=== PATIENT | male | born 1960 | race Asian ===

== ENCOUNTER 2016-08-26 00:34 | Emergency (ER) | payer OTHER ==
[~2016-08-26] VITALS: Ht 165.1 cm; Wt 71.7 kg
[2016-08-26 00:35] VITALS: BP 145/90; PULSE 69; RESP 16; TEMP 98.3; O2SAT 98
--- NOTE | 2016-08-26 00:35 | NUR ---
Patient to ER bed 6 to gown for evaluation. Side rails up. Report given to Adriana DOS SANTOS.
--- NOTE | 2016-08-26 00:37 | NUR ---
Patient brought to ER by BLS from home C/O SOB, nasal congestion, and dry cough for the past 3 days, states "i dont feel good" AAOx4, unlabored breathing, no signs of acute distress.
--- NOTE | 2016-08-26 00:46 | NUR ---
ER MD Rod at bedside for evaluation
[2016-08-26 01:00] VITALS: BP 133/74; PULSE 70; RESP 16; TEMP 98.2; O2SAT 99
--- NOTE | 2016-08-26 01:00 | NUR ---
Patient given written and verbal discharge instructions and verbalizes understanding. ER MD Rod discussed with patient the results and treatment provided. Patient in stable condition. ID arm band removed. Rx of motrin given. Patient educated on pain management and to follow up with PMD. Pain Scale 0/10. Opportunity for questions provided and answered.
== END 2016-08-26 01:00 | disposition home or self-care (01) ==
LOC: SED 00:34
DX: J06.9 Acute upper respiratory infection, unspecified (principal); I10 Essential (primary) hypertension
CPT/HCPCS: 99283